=== PATIENT | male | born 2000 | race Caucasian/White ===

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

== ENCOUNTER 2022-01-16 08:12 | Outpatient (CLI) | payer BC, MEDICAID ==
[~2022-01-16 08:12] MED LIST changes: +FAMO20TA9 PO; -GABA-530 PO; -[UNRECOGNIZED DRUG - CODE] PO
== END 2022-01-16 23:59 | disposition home or self-care (01) ==
LOC: RAD 08:12
PROVIDERS: ATTEND Family Medicine
DX: M25.751 Osteophyte, right hip (principal)
CPT/HCPCS: 73502

== ENCOUNTER 2022-11-18 12:26 | Outpatient (CLI) | payer BC, MEDICAID ==
[2022-11-18 13:10] LABS: CLARITY,URINE CLOUDY (Clear); COLOR,URINE YELLOW (Yellow); GLUCOSE, URINE NEGATIVE (Neg); KETONES,URINE NEGATIVE (Neg); LEUKOCYTE ESTERASE ,URINE NEGATIVE (Neg); NITRITES, URINE NEGATIVE (Neg); OCCULT BLOOD,URINE NEGATIVE (Neg); PROTEIN,URINE NEGATIVE (Neg); UROBILINOGEN,URINE 0.2 E.U/dL (0.2-1.0)
[2022-11-18 13:12] LABS: BASOPHILS # (AUTO) 0.1 X10'3 (0-0.2); BASOPHILS % (AUTO) 0.8 % (0-1); EOSINOPHILS # (AUTO) 0.1 X10'3 (0-0.9); HEMATOCRIT 46.6 % (42.0-52.0); HEMOGLOBIN 15.5 g/dl (14.0-17.9); LYMPHOCYTES # (AUTO) 1.6 X10'3 (1.1-4.8); LYMPHOCYTES % (AUTO) 22.6 % (21-51); MEAN CORPUSCULAR HEMOGLOBIN 29.7 PG (27.0-31.0); MEAN CORPUSCULAR HGB CONC 33.3 g/dL (33.0-36.5); MEAN CORPUSCULAR VOLUME 89.1 FL (78-98); MONOCYTES # (AUTO) 0.9 X10'3 (0-0.9); MONOCYTES % (AUTO) 12.3 % (2-12); NEUTROPHILS # (AUTO) 4.6 X10'3 (1.8-7.7); NEUTROPHILS % (AUTO) 63.3 % (42-75); PLATELET COUNT 172 X10'3 (140-440); RED BLOOD COUNT 5.23 X10'6 (4.70-6.10); RED CELL DISTRIBUTION WIDTH 13.1 % (11.5-14.5); WHITE BLOOD COUNT 7.3 X10'3 (4.5-11.0)
[2022-11-18 13:22] LABS: UA COLLECTION TYPE CLN CATCH MIDSTREAM
[2022-11-18 13:24] LABS: BACTERIA,URINE NONE SEEN /HPF (Neg); RBC,URINE NONE SEEN /HPF (0-2); WBC,URINE 0-4 /HPF (0-4)
[2022-11-18 13:25] LABS: AMORPHOUS PHOSPHATES 4+; SQUAMOUS EPITHELIAL CELL,UR FEW /LPF (FEW)
[2022-11-18 13:30] LABS: ALANINE AMINOTRANSFERASE 27 U/L (12-78); ALBUMIN 4.3 G/DL (3.4-5.0); ALBUMIN/GLOBULIN RATIO 1.3 (1.1-1.5); ALKALINE PHOSPHATASE 68 IU/L (46-116); ANION GAP 10 (8-16); ASPARTATE AMINO TRANSFERASE 19 U/L (10-37); BILIRUBIN,TOTAL 0.4 MG/DL (0.1-1.0); BLOOD UREA NITROGEN 12 MG/DL (7-18); BUN/CREATININE RATIO 16.9 (10.0-20.0); CHLORIDE 103 MMOL/L (99-107); CHOL/HDL RATIO 3.6 (0.00-4.99); CHOLESTEROL 123 MG/DL (0-200); CREATININE 0.71 MG/DL (0.60-1.10); GLUCOSE 99 MG/DL (70-104); HDL CHOLESTEROL 34 MG/DL (35-60); LDL CHOLESTEROL 72 MG/DL (50-100); POTASSIUM 3.6 MMOL/L (3.5-5.1); SODIUM 141 MMOL/L (135-145); TOTAL CARBON DIOXIDE 28.3 MMOL/L (24-32); TOTAL PROTEIN 7.5 G/DL (6.4-8.2); TRIGLYCERIDES 144 MG/DL (20-135); eGFR > 90 ML/MIN
== END 2022-11-18 23:59 | disposition home or self-care (01) ==
LOC: LAB 12:26
PROVIDERS: ATTEND Family Medicine
DX: S06.9X9D Unspecified intracranial injury with loss of consciousness of unspecified duration, subsequent encounter (principal); Z00.00 Encounter for general adult medical examination without abnormal findings; X58.XXXD Exposure to other specified factors, subsequent encounter
CPT/HCPCS: 36415; 80053; 80061; 81001; 84439; 84443; 85025

== ENCOUNTER 2023-12-07 09:02 | Outpatient (CLI) | payer BC, MEDICAID ==
[2023-12-07 09:28] LABS: BASOPHILS % (AUTO) 0.4 % (0-1); EOSINOPHILS # (AUTO) 0.1 X10'3 (0-0.9); EOSINOPHILS % (AUTO) 0.6 % (0-6); HEMOGLOBIN 15.9 g/dl (14.0-17.9); LYMPHOCYTES # (AUTO) 1.4 X10'3 (1.1-4.8); MEAN CORPUSCULAR HEMOGLOBIN 29.8 PG (27.0-31.0); MEAN CORPUSCULAR HGB CONC 33.2 g/dL (33.0-36.5); MEAN CORPUSCULAR VOLUME 89.9 FL (78-98); MEAN PLATELET VOLUME 8.7 FL (7.4-10.4); MONOCYTES # (AUTO) 0.9 X10'3 (0-0.9); MONOCYTES % (AUTO) 10.8 % (2-12); NEUTROPHILS # (AUTO) 6.3 X10'3 (1.8-7.7); NEUTROPHILS % (AUTO) 72.2 % (42-75); PLATELET COUNT 197 X10'3 (140-440); RED BLOOD COUNT 5.34 X10'6 (4.70-6.10); RED CELL DISTRIBUTION WIDTH 13.3 % (11.5-14.5); WHITE BLOOD COUNT 8.7 X10'3 (4.5-11.0)
[2023-12-07 09:58] LABS: ALANINE AMINOTRANSFERASE 26 U/L (12-78); ALBUMIN 4.2 G/DL (3.4-5.0); ALBUMIN/GLOBULIN RATIO 1.1 (1.1-1.5); ALKALINE PHOSPHATASE 64 IU/L (46-116); ANION GAP 7 (8-16); ASPARTATE AMINO TRANSFERASE 15 U/L (10-37); BILIRUBIN,TOTAL 0.6 MG/DL (0.1-1.0); BLOOD UREA NITROGEN 9 MG/DL (7-18); CHLORIDE 104 MMOL/L (99-107); CHOL/HDL RATIO 3.4 (0.00-4.99); CHOLESTEROL 131 MG/DL (0-200); CREATININE 0.82 MG/DL (0.60-1.10); GLUCOSE 108 MG/DL (70-104); HDL CHOLESTEROL 39 MG/DL (35-60); LDL CHOLESTEROL 78 MG/DL (50-100); POTASSIUM 4.2 MMOL/L (3.5-5.1); SODIUM 139 MMOL/L (135-145); THYROID STIMULATING HORMONE 1.06 ulU/ml (0.34-4.50); TOTAL PROTEIN 7.9 G/DL (6.4-8.2); TRIGLYCERIDES 71 MG/DL (20-135); eGFR > 90 ML/MIN
== END 2023-12-07 23:59 | disposition home or self-care (01) ==
LOC: LAB 09:02
PROVIDERS: ATTEND Family Medicine
DX: S06.9X9D Unspecified intracranial injury with loss of consciousness of unspecified duration, subsequent encounter (principal); Z00.00 Encounter for general adult medical examination without abnormal findings; X58.XXXD Exposure to other specified factors, subsequent encounter
CPT/HCPCS: 36415; 80053; 80061; 84436; 84443; 85025

== ENCOUNTER 2024-07-31 13:23 | Emergency (ER) | payer MEDICAID ==
[~2024-07-31] VITALS: Ht 175.3 cm; Wt 74.8 kg
[2024-07-31] MEDS ORDERED: iohexol 300mg/ml 100ml inj. ONE (13:32)
[2024-07-31 14:15] VITALS: PULSE 96; TEMP 96.2
[2024-07-31 14:28] VITALS: BP 173/112; RESP 30; O2SAT 95
== END 2024-07-31 14:30 | disposition short-term general hospital (02) ==
LOC: ER 13:24
DX: S06.0XAA Concussion with loss of consciousness status unknown, initial encounter (principal); R41.82 Altered mental status, unspecified; F41.9 Anxiety disorder, unspecified; Z79.899 Other long term (current) drug therapy; X58.XXXA Exposure to other specified factors, initial encounter; Y93.89 Activity, other specified; Y92.89 Other specified places as the place of occurrence of the external cause; Y99.8 Other external cause status
CPT/HCPCS: 70450; 70486; 72125; 93005; 99291; Q9967

== ENCOUNTER 2024-11-13 13:44 | Outpatient (CLI) | payer BC, MEDICAID ==
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
== END 2024-11-13 23:59 | disposition home or self-care (01) ==
LOC: RAD 13:44
PROVIDERS: ATTEND Family Medicine
DX: M53.3 Sacrococcygeal disorders, not elsewhere classified (principal)
CPT/HCPCS: 72220

== ENCOUNTER 2024-12-21 10:05 | Outpatient (CLI) | payer BC, MEDICAID ==
[2024-12-21 10:49] LABS: BASOPHILS % (AUTO) 0.5 % (0-1); EOSINOPHILS % (AUTO) 0.6 % (0-6); HEMATOCRIT 42.2 % (42.0-52.0); LYMPHOCYTES # (AUTO) 1.2 X10'3 (1.1-4.8); MEAN CORPUSCULAR HEMOGLOBIN 29.5 PG (27.0-31.0); MEAN CORPUSCULAR HGB CONC 33.2 g/dL (33.0-36.5); MEAN PLATELET VOLUME 9.6 FL (7.4-10.4); MONOCYTES % (AUTO) 12.3 % (2-12); NEUTROPHILS # (AUTO) 5.7 X10'3 (1.8-7.7); NEUTROPHILS % (AUTO) 71.6 % (42-75); PLATELET COUNT 182 X10'3 (140-440); RED BLOOD COUNT 4.75 X10'6 (4.70-6.10); RED CELL DISTRIBUTION WIDTH 13.4 % (11.5-14.5); WHITE BLOOD COUNT 7.9 X10'3 (4.5-11.0)
[2024-12-21 11:15] LABS: ALANINE AMINOTRANSFERASE 139 U/L (12-78); ALBUMIN 3.8 G/DL (3.4-5.0); ALBUMIN/GLOBULIN RATIO 1.2 (1.1-1.5); ALKALINE PHOSPHATASE 63 IU/L (46-116); ANION GAP 8 (8-16); ASPARTATE AMINO TRANSFERASE 36 U/L (10-37); BILIRUBIN,TOTAL 0.3 MG/DL (0.1-1.0); BLOOD UREA NITROGEN 13 MG/DL (7-18); BUN/CREATININE RATIO 22.8 (10.0-20.0); CALCIUM 8.9 MG/DL (8.5-10.1); CHLORIDE 107 MMOL/L (99-107); CHOL/HDL RATIO 3.8 (0.00-4.99); CHOLESTEROL 153 MG/DL (0-200); CREATININE 0.57 MG/DL (0.60-1.10); GLUCOSE 103 MG/DL (70-104); HDL CHOLESTEROL 40 MG/DL (35-60); LDL CHOLESTEROL 93 MG/DL (50-100); POTASSIUM 3.9 MMOL/L (3.5-5.1); SODIUM 143 MMOL/L (135-145); THYROID STIMULATING HORMONE 0.88 ulU/ml (0.34-4.50); TOTAL CARBON DIOXIDE 28.2 MMOL/L (24-32); TOTAL PROTEIN 7.1 G/DL (6.4-8.2); TRIGLYCERIDES 64 MG/DL (20-135); VALPROATE 7 UG/ML (50-100); eGFR > 90 ML/MIN
== END 2024-12-21 23:59 | disposition home or self-care (01) ==
LOC: RAD 10:05
PROVIDERS: ATTEND Family Medicine
DX: Z00.01 Encounter for general adult medical examination with abnormal findings (principal)
CPT/HCPCS: 36415; 80053; 80061; 80164; 84443; 85025

== ENCOUNTER 2024-12-26 07:59 | Outpatient (CLI) | payer BC, MEDICAID ==
[2024-12-26 08:53] LABS: ALBUMIN 4.3 G/DL (3.4-5.0); ANION GAP 12 (8-16); BLOOD UREA NITROGEN 19 MG/DL (7-18); BUN/CREATININE RATIO 31.7 (10.0-20.0); CALCIUM 9.1 MG/DL (8.5-10.1); CHLORIDE 105 MMOL/L (99-107); GLUCOSE 99 MG/DL (70-104); PHOSPHORUS 3.4 MG/DL (2.3-4.5); POTASSIUM 4.4 MMOL/L (3.5-5.1); SODIUM 142 MMOL/L (135-145); TOTAL CARBON DIOXIDE 25.5 MMOL/L (24-32); eGFR > 90 ML/MIN
[2024-12-26 08:59] LABS: VALPROATE 63 UG/ML (50-100)
[2024-12-27 08:13] LABS: HBSAG SCREEN Negative (Negative); HEP A AB, IGM Negative (Negative); HEP B CORE AB, IGM Negative (Negative); HEPATITIS C VIRUS ANTIBODY Non Reactive (Non Reactive)
== END 2024-12-26 23:59 | disposition home or self-care (01) ==
LOC: RAD 07:59
PROVIDERS: ATTEND Family Medicine
DX: R94.5 Abnormal results of liver function studies (principal); G40.909 Epilepsy, unspecified, not intractable, without status epilepticus
CPT/HCPCS: 36415; 80069; 80074; 80164

== ENCOUNTER 2025-03-14 10:49 | Outpatient (CLI) | payer BC, MEDICAID ==
[2025-03-14 11:52] LABS: VALPROATE 60 UG/ML (50-100)
== END 2025-03-14 23:59 | disposition home or self-care (01) ==
LOC: LAB 10:49
PROVIDERS: ATTEND Family Medicine
DX: R94.5 Abnormal results of liver function studies (principal); G40.909 Epilepsy, unspecified, not intractable, without status epilepticus
CPT/HCPCS: 36415; 80076; 80164

== ENCOUNTER 2025-04-28 05:35 | Inpatient (IN) | payer BC, MEDICAID ==
[~2025-04-28] VITALS: Ht 170.2 cm; Wt 68.2 kg
[2025-04-28] VITALS (18 sets, daily range): BP systolic 139–157; BP diastolic 84–104; PULSE 83–106; RESP 13–41; TEMP 98.1–101.2; O2SAT 91–99
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
[2025-04-28] MEDS: normal saline 1000ML IV soln IVB ONE (06:17)
[2025-04-28] MEDS: morphine 4 MG/ML inj SYRINge IV ONE ×2 (06:17→10:48)
[2025-04-28] MEDS: ondansetron/PF 4mg/2ml inj IV ONE (06:17)
[2025-04-28 07:22] LABS: MEAN PLATELET VOLUME 9.1 FL (7.4-10.4); RED CELL DISTRIBUTION WIDTH 14.1 % (11.5-14.5)
[2025-04-28 07:30] LABS: CREATININE 0.67 MG/DL (0.60-1.10); TOTAL CARBON DIOXIDE 30.9 MMOL/L (24-32); eCRCL 160 ML/MIN; eGFR > 90 ML/MIN
--- NOTE | 2025-04-28 08:27 | RADIOLOGY REPORT ---
Exam: CT CT ABDOMEN PELVIS W/ IV CONTRAST History: RLQ pain COMPARISON: None Technique: Multidetector spiral CT of the abdomen and pelvis was performed from lung bases to pubic symphysis. Intravenous contrast was administered during this examination. Portal venous imaging was obtained. Axial, coronal and sagittal multiplanar reformats were performed by the technologist on a separate workstation. Radiation Dose : 1. Abdomen/Pelvis: CTDIvol 14 mGy, DLP 815 mGy*cm. Findings: Lung Bases: No acute or significant lung base finding. Normal heart size. No pleural or pericardial effusion. Liver: Hepatomegaly, 17.7 cm craniocaudal. No focal lesions. Normal hepatic vascular enhancement. Gallbladder and Biliary Tree: Unremarkable Spleen: Unremarkable Pancreas: The pancreas is normal in appearance without focal lesions or abnormal enhancement. Adrenal Glands: Unremarkable Kidneys: No hydronephrosis. Bladder: Diffuse thickening of the urinary bladder. Bowel: Mildly distended stomach. Mild diffuse fluid-filled distention of small- bowel loops with mild small bowel wall thickening. Moderate volume colonic stool. The appendix is not visualized; however, no secondary findings of acute appendicitis identified. Ascites: Absent Lymphadenopathy: No mesenteric, retroperitoneal or periportal lymphadenopathy. 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 Vasculature: The visualized abdominal aorta is normal in size and caliber. Abdominal and pelvic vessels demonstrate normal enhancement. Pelvic Organs: 5.2 cm linear foreign body is present in the anterior pelvis of uncertain etiology. Musculoskeletal: Right hip surgical hardware. No aggressive focal bony lesions, acute fractures or dislocation. IMPRESSION: Mild diffuse fluid-filled distention of small-bowel loops with mild small bowel wall thickening. Findings may represent enteritis. Moderate volume colonic stool. Diffuse thickening of the urinary bladder. Correlate for cystitis. 5.2 cm linear foreign body is present in the anterior pelvis of uncertain etiology. Radiation optimization: All CT scans at this facility use at least one of these dose optimization techniques: automated exposure control mA and/or kV adjustment per patient size (includes targeted exams where dose is matched to clinical indication) or iterative reconstruction.
[2025-04-28 08:45] LABS: LEUKOCYTE ESTERASE ,URINE NEGATIVE (Neg); NITRITES, URINE NEGATIVE (Neg); OCCULT BLOOD,URINE NEGATIVE (Neg)
[2025-04-28 08:51] LABS: UA COLLECTION TYPE URINAL
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
[2025-04-28] MEDS ORDERED: iohexol 300mg/ml 100ml inj. ONE (09:44)
[2025-04-28] MEDS ORDERED: magnesium hydroxide 30ml (MOM) UD suspension PO PRN (10:30)
[2025-04-28] MEDS ORDERED: mag hydrox/Alum hydrox/simeth 30ml oral suspension PO PRN (10:30)
[2025-04-28] MEDS ORDERED: magnesium sulf-water 2g/50mL 50 ML IV PRN (10:30)
[2025-04-28] MEDS ORDERED: potassium Cl 20 mEq SR tablet PO PRN ×2 (10:30)
[2025-04-28] MEDS ORDERED: mineral oil 133ml enema RC PRN (10:30)
[2025-04-28] MEDS ORDERED: magnesium sulf-water 4G/100mL 100 ML IV PRN (10:30)
[2025-04-28] MEDS ORDERED: potassium Cl 40MEQ/1/2NS 520ml 520 ML IV PRN (10:30)
[2025-04-28] MEDS: bisacodyl 10mg suppository rectal RC ONE (10:47)
[2025-04-28] MEDS: piperacillin/tazo 3.375gm/50ml 50 ML IV ONE (10:47)
[2025-04-28] MEDS: bisacodyl 10mg suppository rectal RC PRN (11:05)
[2025-04-28] MEDS: normal saline 1000ml 1,000 ML IV SCH (12:20)
[2025-04-28] MEDS: divalproex 250mg tablet, delayed-release PO ONE ×2 (13:59)
[2025-04-28] MEDS: lactulose 20gm/30ml cup PO SCH (15:14)
[2025-04-28] MEDS: piperacillin/tazo 4.5gm/100ml 100 ML IV SCH (15:41)
[2025-04-28] MEDS ORDERED: BUPIVAcaine 2.5mg/ml inj 50ml vial (contains preservative) ONE (17:05)
[2025-04-28] MEDS ORDERED: midazolam 1 mg/ML 2ml injection ONE (17:15)
[2025-04-28] MEDS ORDERED: fentaNYL /PF 50mcg/ml 5ml ampule ONE (17:15)
[2025-04-28] MEDS ORDERED: propofol inj 20 ML IV ONE (17:17)
[2025-04-28] MEDS ORDERED: rocuronium 10mg/ml inj IV ONE (17:17)
[2025-04-28] MEDS: BUPIVAcaine/PF 2.5 mg/ml (0.25%) 30ml vial IJ ONE (17:32)
[2025-04-28] MEDS ORDERED: diatr meglu/diatrizoate 30ml oral sol.-(3 dose) bottle PO SCH (18:00)
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
[2025-04-28] MEDS ORDERED: acetaminophen 1,000mg/100ml IV 100 ML IV ONE (18:42)
[2025-04-28] MEDS ORDERED: metoprolol tartrate 1mg/ml inj IV ONE (18:49)
[2025-04-28] MEDS ORDERED: glycopyrrolate 0.2mg/ml inj ONE (18:49)
--- NOTE | 2025-04-28 19:12 | OPERATIVE REPORT ---
Operative Report Providers to CC CC: ROBERT MORALES MD ~ Date of Procedure: Apr 28, 2025 Pre-Operative Diagnosis: Peritonitis, abdominal foreign body Post-Operative Diagnosis Small-bowel perforation secondary to foreign body perforation with localized peritonitis Wound class III Procedure Performed Diagnostic laparoscopy Exploratory laparotomy Removal of abdominal foreign body Small-bowel resection Primary small bowel anastomosis (isoperistaltic enteroenterostomy) Appendectomy Surgeon: Robert Morales MD FACS Gambling Dealer None Anesthesiologist: Eladio Wright Type of Anesthesia: General Findings: Inflammatory process involving the small bowel not amenable to laparoscopic approach Perforated distal small bowel with metallic punch tool Isoperistaltic enteroenterostomy about 10 cm proximal to the ileocecal valve Wound class III Complications None Prosthetics\Implants used: None Estimated Blood Loss: 25 cc Specimen Removed: Segment of perforated distal small bowel Appendix Description of Procedure: Patient was brought to the operating room and identified by the nursing staff and the attending physician. Patient was placed supine and general anesthesia was induced. Abdomen was prepped and draped in the standard sterile fashion. Veress needle technique was used at kauffman's point, however, I was having difficulty adequately insufflated in the abdomen. Decision to change to Piña technique was made and a supraumbilical midline incision was made following administration of local anesthetic. Incision was large enough to accommodate a 12 mm Piña port. Fascial incision was made and the Piña port was placed. Abdomen was insufflated without incident. Laparoscope was inserted in the abdomen was surveyed laparoscopically. There was a large inflammatory process in the lower abdomen/proximal pelvis. This was in the general location of the presumed foreign body. Given the amount of inflammatory changes and adhesions between small bowel and the anterior abdominal, the decision to not proceed laparoscopically was made. Laparoscope was removed and the midline incision was lengthened superiorly and inferiorly. Abdomen was entered. LONG TERM shunt was identified and set aside taking care to protect it throughout the case. Small bowel mobilized through the midline incision. Proximally all the bowel appeared normally, however distally, there was a matted mass of small intestine. This was slowly mobilized and the adhesions were all inflammatory in nature. While mobilizing these, I encountered a metallic object that had perforated the small intestine. About half of a metallic punch tool (the sharp end) had perforated a segment of distal small bowel and there was a significant circumferential inflammatory reaction. This segment of small bowel was mobilized out of the midline incision into the operative field. There was no gross spillage of enteral contents. The punch tool was removed and set aside. A small-bowel resection was performed using ELEAZAR 75 linear cutting stapler. Perforation was about 20 cm proximal to the ileocecal valve. An isoperistaltic enteroenterostomy was created about 10 cm proximal to the ileocecal valve. Common channel was sutured closed with a running [place] type suture using absorbable V lock suture. Suture line was reinforced with a running Lembert suture using the same suture material. Mesenteric defect was closed with absorbable suture. Bowel was reduced back into the abdomen which was then irr igated with antiseptic solution. LONG TERM shunt was laid back in the abdomen. Midline fascia was closed with a running, 0, PDS suture. Wound was irrigated with antiseptic solution and the skin was closed with skin pati. Sterile dressing was applied. Patient was awakened and taken to the postanesthesia care unit in stable condition. Counts repoted as correct: Yes ROBERT MORALES MD Apr 28, 2025 19:12
[2025-04-28] MEDS ORDERED: PCA WASTE DOCUMENTATION 1 MG ML MC SCH (19:15)
[2025-04-28] MEDS ORDERED: LIDOcaine 2% jelly 6ml syringe ***for topical use only ONE (19:20)
[2025-04-28] MEDS ORDERED: docusate sod 100mg capsule PO SCH (20:00)
[2025-04-28] MEDS: K and/or MAG REPLACEMENT MC SCH (20:00)
[2025-04-28] MEDS ORDERED: DIVA250T2 PO (21:03)
[2025-04-28] MEDS: heparin, porcine 5000 units/ml vial SQ SCH (22:01)
[2025-04-28] MEDS: NORMAL SALINE IV SCH (22:02)
[2025-04-28] MEDS: VALPROATE SOD IV SCH (22:02)
[2025-04-28] MEDS: HYDROmorphone inj. 0.5 MG/0.5 ML DISP.SYRIN IV PRN (22:10)
[2025-04-28] MEDS: ondansetron/PF 4mg/2ml inj IV PRN (22:15)
[2025-04-29] VITALS: BP 145/94; PULSE 93; TEMP 98.1; O2SAT 94
[2025-04-29 06:23] LABS: MEAN PLATELET VOLUME 9.5 FL (7.4-10.4); RED CELL DISTRIBUTION WIDTH 14.3 % (11.5-14.5)
[2025-04-29 06:35] VITALS: BP 150/92; PULSE 98; RESP 28; TEMP 98.1; O2SAT 95
[2025-04-29 06:42] LABS: CREATININE 0.51 MG/DL (0.60-1.10); TOTAL CARBON DIOXIDE 27.0 MMOL/L (24-32); eCRCL 211 ML/MIN; eGFR > 90 ML/MIN
[2025-04-29 08:00] VITALS: RESP 16; O2SAT 95
[2025-04-29 10:15] VITALS: BP 145/95; PULSE 104; RESP 20; TEMP 98.8; O2SAT 95
--- NOTE | 2025-04-29 16:59 | PROGRESS NOTE ---
Progress Note Dictate Providers to CC ~ Progress Note: Subsequent surgical care on a 24-year-old gentleman who is postoperative day 1 status post laparoscopic diagnostic with exploratory laparotomy and small-bowel resection and removal of foreign body that perforated the distal small bowel Patient does not like his nasogastric tube or Garcia catheter I explained why these were necessary Continue ice chips only with plans for another 24-48 hours of nasogastric tube decompression until return of bowel function Garcia catheter may be discontinued if bothersome to the patient, however, I would prefer he wait until tomorrow morning Antibiotic Ordered?: Yes Objective Vitals Vital Signs Date Time Temp Pulse Resp B/P (MAP) Pulse Ox O2 Delivery O2 Flow Rate FiO2 04/29/25 13:41 18 04/29/25 10:15 98.8 104 145/95 (112) 95 Room Air 04/28/25 19:50 2.0 Lab Results: 04/29/25 0530 04/29/25 0530 DODIE MORALES MD Apr 29, 2025 16:59
[2025-04-29 19:00] VITALS: BP 143/91; PULSE 102; RESP 16; RESP 17; TEMP 97.6; O2SAT 95
--- NOTE | 2025-04-29 19:51 | PROGRESS NOTE ---
Daily Progress Note Providers to CC ~ Antibiotic Timeout Antibiotic Ordered?: Yes Subjective The patient is doing fine postop however he is rather resistant to the NG tube however Dr. Gama convinced the patient to continue NG tube suctioning the patient remains on ice chips Objective Vital Signs Date Time Temp Pulse Resp B/P (MAP) Pulse Ox O2 Delivery O2 Flow Rate FiO2 04/29/25 17:45 16 04/29/25 10:15 98.8 104 145/95 (112) 95 Room Air 04/28/25 19:50 2.0 Result Diagram: 04/29/2530 04/29/25 05 Gen. No acute distress alert HEENT NG tube is present Lungs clear to ascultation bilaterally, no wheezes rales or rhonchi appreciated Heart normal sinus rhythm no murmurs rubs or clicks noted Abdomen soft [id number] generalized tenderness bowel sounds are absent Lower extremities no clubbing cyanosis, nor edema appreciated bilaterally Problem\Assessment\Plan Problems/Diagnosis: (1) Abdominal pain # significant abdominal pain/ surgical abdomen # retained abdominal foreign body Robert Gama MD general surgeon taking the patient to the OR and the patient currently is in surgery 04/29 status post exploratory laparotomy with the removal of a punch foreign body and small-bowel resection and primary small bowel anastomosis Per Dr. Gama the patient will continue ice chips for another 12:48 p.m. of NG tube decompression. # traumatic brain injury # hygroma RAVELER shunt is present # history of tracheostomy and PEG tube placement Both have subsequently been removed # multiple bone fractures with orthopedic surgeries # leukocytosis # possible intra-abdominal infection IV Zosyn Date of Service: Apr 29, 2025 Billing Provider: VALENTIN VICTOR DO Common Visit Codes: [id number] INP/OBS CARE(HIGH) Problem Qualifiers (1) Abdominal pain: Qualified Codes: R10.84 - Generalized abdominal pain VALENTIN VICTOR DO Apr 29, 2025 19:51
[2025-04-29 22:30] VITALS: BP 143/98; PULSE 90; RESP 22; TEMP 98; O2SAT 95
[2025-04-30 05:47] LABS: MEAN PLATELET VOLUME 9.4 FL (7.4-10.4); RED CELL DISTRIBUTION WIDTH 14.0 % (11.5-14.5)
[2025-04-30 06:21] LABS: CREATININE 0.43 MG/DL (0.60-1.10); TOTAL CARBON DIOXIDE 26.9 MMOL/L (24-32); eCRCL 250 ML/MIN; eGFR > 90 ML/MIN
[2025-04-30 06:45] VITALS: BP 130/86; PULSE 93; RESP 22; TEMP 97.9; O2SAT 95
[2025-04-30 07:00] VITALS: RESP 16
--- NOTE | 2025-04-30 13:23 | ELECTROCARDIOGRAPH REPORT ---
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 Reyna Gutierrez Measurements Intervals Watkins Rate: 81 P: 42 MI: 130 QRS: 75 QRSD: 94 T: 34 QT: 374 QTc: 434 Interpretive Statements Normal sinus rhythm Nonspecific T wave abnormality Electronically Signed On 05-01-2025 6:46:[address] Reyna Gutierrez Please click the below link to view image of tracing.
[2025-04-30 18:00] VITALS: BP 130/72; PULSE 84; RESP 15; TEMP 98.4; O2SAT 97
[2025-04-30 19:00] VITALS: RESP 20; O2SAT 95
--- NOTE | 2025-04-30 19:09 | PROGRESS NOTE ---
Daily Progress Note Providers to CC ~ Antibiotic Timeout Antibiotic Ordered?: Yes Subjective I appreciated some faint bowel sounds today and his abdomen was less tender, the patient complained of chest pain to nursing staff and an EKG was obtained and was negative for any acute changes and likely secondary to irritation from NG tube. Objective Vital Signs Date Time Temp Pulse Resp B/P (MAP) Pulse Ox O2 Delivery O2 Flow Rate FiO2 04/30/25 18:58 18 04/30/25 07:00 Room Air 04/30/25 06:45 97.9 93 130/86 (101) 95 04/28/25 19:50 2.0 Result Diagram: 04/30/2542104/30/25421 Gen. No acute distress alert HEENT NG tube is present Lungs clear to ascultation bilaterally, no wheezes rales or rhonchi appreciated Heart normal sinus rhythm no murmurs rubs or clicks noted Abdomen soft minimal generalized tenderness bowel sounds are faint and hypoactive Lower extremities no clubbing cyanosis, nor edema appreciated bilaterally Problem\Assessment\Plan Problems/Diagnosis: (1) Abdominal pain # significant abdominal pain/ surgical abdomen # retained abdominal foreign body Robert Gama MD general surgeon taking the patient to the OR and the patient currently is in surgery 04/29 status post exploratory laparotomy with the removal of a punch foreign body and small-bowel resection and primary small bowel anastomosis Per Dr. Gama the patient will continue ice chips and NG tube decompression for additional 24 hours # traumatic brain injury # hygroma PIPELINER shunt is present # history of tracheostomy and PEG tube placement Both have subsequently been removed # multiple bone fractures with orthopedic surgeries # leukocytosis # possible intra-abdominal infection IV Zosyn 04/30 Leukocytosis is improving Date of Service: Apr 30, 2025 Billing Provider: VALENTIN VICTOR DO Common Visit Codes: [id number] INP/OBS CARE(HIGH) Problem Qualifiers (1) Abdominal pain: Qualified Codes: R10.84 - Generalized abdominal pain VALENTIN VICTOR DO Apr 30, 2025 19:09
--- NOTE | 2025-04-30 19:41 | PROGRESS NOTE ---
Progress Note Dictate Providers to CC ~ Progress Note: Subsequent surgical care on a 24-year-old gentleman who is postoperative day 2, status post laparoscopic diagnostic with exploratory laparotomy and small-bowel resection and removal of foreign body that perforated the distal small bowel Minimal output from the nasogastric tube, but patient does not endorse any passage of flatus His main request is to have the Garcia catheter removed. Midline incision clean, dry, and intact Abdomen soft and nondistended Continue ice chips and nasogastric tube until passing flatus Garcia catheter can be removed Antibiotic Ordered?: Yes Objective Vitals Vital Signs Date Time Temp Pulse Resp B/P (MAP) Pulse Ox O2 Delivery O2 Flow Rate FiO2 04/30/25 18:58 18 04/30/25 07:00 Room Air 04/30/25 06:45 97.9 93 130/86 (101) 95 04/28/25 19:50 2.0 Lab Results: 04/30/25 0422 04/30/25 0422 DODIE MORALES MD Apr 30, 2025 19:41
[2025-04-30 22:00] VITALS: BP 127/72; PULSE 82; RESP 20; TEMP 98.1; O2SAT 95
[2025-05-01 05:06] LABS: MEAN PLATELET VOLUME 8.9 FL (7.4-10.4); RED CELL DISTRIBUTION WIDTH 14.0 % (11.5-14.5)
[2025-05-01 05:13] LABS: CREATININE 0.48 MG/DL (0.60-1.10); TOTAL CARBON DIOXIDE 26.4 MMOL/L (24-32); eCRCL 224 ML/MIN; eGFR > 90 ML/MIN
[2025-05-01 07:00] VITALS: RESP 20; O2SAT 95
[2025-05-01] MEDS ORDERED: acetaminophen 650mg rectal suppository RC PRN (07:20)
--- NOTE | 2025-05-01 09:55 | RADIOLOGY REPORT ---
Date: 05/01/2025 08:50 AM Examination: DI ABDOMEN,SINGLE VIEW(KUB) History: small bowel obstruction Comparison: CT CT ABDOMEN PELVIS W/ IV CONTRAST on DOS: 04/28/25 TECHNIQUE: Frontal views of the abdomen was obtained. FINDINGS: Bowel gas pattern is unremarkable. The lung bases are unremarkable. No acute osseous abnormality identified. Catheter projecting over the pelvis. IMPRESSION: Nonobstructive bowel gas pattern. large stool burden.
[2025-05-01 10:32] VITALS: BP 135/88; PULSE 80; RESP 16; TEMP 98.6; O2SAT 96
--- NOTE | 2025-05-01 11:16 | PROGRESS NOTE ---
Daily Progress Note Providers to CC ~ Antibiotic Timeout Antibiotic Ordered?: Yes Subjective No acute events overnight. Patient examined at bedside. No new complaints not in acute distress. Patient denies chest pain, sob, palpitations, abdominal pain, n/v/d. Vss, labs unremarkable. Peritonitis s/p removal of foreign body, small bowel resection and anastomosis. POD #2, continued on IV abx. Objective Vital Signs Date Time Temp Pulse Resp B/P (MAP) Pulse Ox O2 Delivery O2 Flow Rate FiO2 05/01/25 10:32 98.6 80 16 135/88 (104) 96 04/30/25 22:00 Room Air 04/28/25 19:50 2.0 Result Diagram: 05/01/2543405/01/25434 Physical Exam General: Generalized weakness, awake and alert, NAD HEENT: Normocephalic, PERRLA Neck: Supple, trachea midline, no JVD Chest: Clear to auscultation bilaterally Cardiovascular: RRR, S1&S2 GI: Soft and nontender Extremities: No cyanosis/clubbing/or edema FRAME TABLE OPERATOR HELPER: No focal deficits Musculoskeletal: No paraspinal muscle tenderness, no muscle spasm Skin: medial abdominal incision pati, no s/s infection Problem\Assessment\Plan Problems/Diagnosis: (1) Abdominal pain Assessment & Plan Peritonitis s/p ex laparotomy, removal of foreign body, small-bowel resection and anastomosis Retained abdominal foreign body 04/29 s/p exploratory laparotomy with the removal of a punch foreign body and small-bowel resection and primary small bowel anastomosis Per Dr. Gama the patient will continue ice chips and NG tube decompression for additional 24 hours Hx TBI Hygroma Hx multiple bone fractures with orthopedic surgeries Hx tracheostomy and PEG tube placement- both have subsequently been removed s/p COMPLAINT MANAGER shunt DVT/VTE Prophylaxis: heparin Code Status: Full Code Date of Service: May 01, 2025 Billing Provider: IZABEL TIERNEY Common Visit Codes: [id number] INP/OBS CARE(HIGH) Problem Qualifiers (1) Abdominal pain: Qualified Codes: R10.84 - Generalized abdominal pain IZABEL TIERNEY May 01, 2025 11:16
[2025-05-01] MEDS: oxyCODONE/APAP 5-325mg tablet PO PRN (17:54)
[2025-05-01 18:00] VITALS: BP 133/76; PULSE 80; RESP 19; TEMP 97.4; O2SAT 97
[2025-05-01 19:00] VITALS: RESP 19; O2SAT 97
[2025-05-01 22:00] VITALS: BP 121/57; PULSE 61; RESP 17; TEMP 98.1; O2SAT 97
--- NOTE | 2025-05-01 23:11 | PROGRESS NOTE ---
Progress Note Dictate Providers to CC ~ Progress Note: Subsequent surgical care on a 24-year-old gentleman who is postoperative day 3, status post laparoscopic diagnostic with exploratory laparotomy and small-bowel resection and removal of foreign body that perforated the distal small bowel Nasogastric tube apparently was accidentally removed last night by the patient He is passing flatus today Midline incision clean, dry, and intact Abdomen soft and nondistended Trial of clear liquid diet Continue antibiotics for another two days Antibiotic Ordered?: Yes Objective Vitals Vital Signs Date Time Temp Pulse Resp B/P (MAP) Pulse Ox O2 Delivery O2 Flow Rate FiO2 05/01/25 19:00 19 97 Room Air 05/01/25 18:00 97.4 80 133/76 (95) 04/28/25 19:50 2.0 Lab Results: 05/01/25 0435 05/01/25 0435 DODIE MORALES MD May 01, 2025 23:11
[2025-05-02] VITALS (7 sets, daily range): BP systolic 110–129; BP diastolic 54–72; PULSE 63–83; RESP 16–20; TEMP 97.5–97.8; O2SAT 94–98
[2025-05-02 05:56] LABS: MEAN PLATELET VOLUME 8.5 FL (7.4-10.4); RED CELL DISTRIBUTION WIDTH 14.2 % (11.5-14.5)
[2025-05-02 06:26] LABS: CREATININE 0.47 MG/DL (0.60-1.10); TOTAL CARBON DIOXIDE 26.3 MMOL/L (24-32); eCRCL 229 ML/MIN; eGFR > 90 ML/MIN
--- NOTE | 2025-05-02 10:40 | PROGRESS NOTE ---
Daily Progress Note Providers to CC ~ Antibiotic Timeout Antibiotic Ordered?: Yes Subjective No acute events overnight. Patient examined at bedside. No new complaints not in acute distress. Patient denies chest pain, sob, palpitations, abdominal pain, n/v/d. Vss, labs unremarkable. Peritonitis s/p removal of foreign body, small bowel resection and anastomosis. POD #3, continued on IV abx. Objective Vital Signs Date Time Temp Pulse Resp B/P (MAP) Pulse Ox O2 Delivery O2 Flow Rate FiO2 05/02/25 09:43 16 05/02/25 07:00 97 Room Air 05/02/25 06:49 97.8 63 111/63 (79) 04/28/25 19:50 2.0 Result Diagram: 05/02/2551105/02/25511 Physical Exam General: Generalized weakness, awake and alert, NAD HEENT: Normocephalic, PERRLA Neck: Supple, trachea midline, no JVD Chest: Clear to auscultation bilaterally Cardiovascular: RRR, S1&S2 GI: Soft and nontender Extremities: No cyanosis/clubbing/or edema FUEL QUALITY TECH: No focal deficits Musculoskeletal: No paraspinal muscle tenderness, no muscle spasm Skin: medial abdominal incision pati, no s/s infection Problem\Assessment\Plan Problems/Diagnosis: (1) Abdominal pain Assessment & Plan Peritonitis s/p ex laparotomy, removal of foreign body, small-bowel resection and anastomosis Retained abdominal foreign body 04/29 s/p exploratory laparotomy with the removal of a punch foreign body and small-bowel resection and primary small bowel anastomosis Per Dr. Gama the patient will continue ice chips and NG tube decompression for additional 24 hours 05/01-05/02: continue abx Hx TBI Hygroma Hx multiple bone fractures with orthopedic surgeries Hx tracheostomy and PEG tube placement- both have subsequently been removed s/p BUSINESS OPERATIONS CONSULTANT shunt DVT/VTE Prophylaxis: heparin Code Status: Full Code Date of Service: May 02, 2025 Billing Provider: IZABEL TIERNEY Common Visit Codes: [id number] INP/OBS CARE(HIGH) Problem Qualifiers (1) Abdominal pain: Qualified Codes: R10.84 - Generalized abdominal pain IZABEL TIERNEY May 02, 2025 10:40
--- NOTE | 2025-05-02 20:30 | PROGRESS NOTE ---
Progress Note Dictate Providers to CC ~ Progress Note: Subsequent surgical care on a 24-year-old gentleman who is postoperative day 4, status post laparoscopic diagnostic with exploratory laparotomy and small-bowel resection and removal of foreign body that perforated the distal small bowel Tolerating full liquid diet No acute surgical issues Midline incision clean, dry, and intact Abdomen soft and nondistended Regular diet as tolerated Antibiotic through tomorrow Likely able to discharge tomorrow Antibiotic Ordered?: Yes Objective Vitals Vital Signs Date Time Temp Pulse Resp B/P (MAP) Pulse Ox O2 Delivery O2 Flow Rate FiO2 05/02/25 20:00 16 05/02/25 10:00 97.8 63 126/72 (90) 94 Room Air 04/28/25 19:50 2.0 Lab Results: 05/02/25 0512 05/02/25 0512 DODIE MORALES MD May 02, 2025 20:30
[2025-05-03 04:22] LABS: MEAN PLATELET VOLUME 8.4 FL (7.4-10.4); RED CELL DISTRIBUTION WIDTH 14.1 % (11.5-14.5)
[2025-05-03 04:40] LABS: CREATININE 0.63 MG/DL (0.60-1.10); TOTAL CARBON DIOXIDE 28.6 MMOL/L (24-32); eCRCL 171 ML/MIN; eGFR > 90 ML/MIN
[2025-05-03 05:50] LABS: EOSINOPHILS % (MANUAL) 3.0 % (0-6); LYMPHOCYTES % (MANUAL) 23.0 % (21-51); METAMYLEOCYTES% (MANUAL) 5.0 % (0-0); MONOCYTES % (MANUAL) 16.0 % (2-12); NEUTROPHILS % (MANUAL) 53.0 % (42-75)
[2025-05-03 05:53] LABS: PLATELET ESTIMATE NORMAL
[2025-05-03 06:46] VITALS: BP 102/66; PULSE 67; RESP 14; TEMP 97.6; O2SAT 96
[2025-05-03] MEDS ORDERED: PER5325T PO (07:09)
[2025-05-03] MEDS: divalproex 250mg tablet, delayed-release PO SCH (08:23)
[2025-05-03 08:54] VITALS: RESP 14; O2SAT 96
[2025-05-03 10:00] VITALS: BP 133/79; PULSE 86; RESP 16; TEMP 98.5; O2SAT 97
--- NOTE | 2025-05-03 11:13 | CONSULTATION REPORT ---
History of Present Illness Providers to CC CC: DODIE MORALES MD ~ Reason for Admit\Admit Dx: Surgical abdomen with severe abdominal pain and foreign body Refering MD: DR. VILLELA History of Present Illness This is a surgical consultation being dictated in a delayed fashion as the original dictation is not to be found. Patient was seen and examined and the consultation performed on April 28, 2025 before proceeding to the operating room Patient is a 24-year-old gentleman with a history of traumatic brain injury and BOOSTER PUMP OILER shunt placement five years ago. He presented to the emergency room with a three day history of worsening abdominal pain. He was found to have severe abdominal pain and a CT scan was performed. This was a noncontrast CT scan that revealed a foreign body in the lower abdomen. I was called to review the CT scan as the patient had severe abdominal pain and questionable peritonitis. I reviewed the CT scan, and indeed, there was a metallic foreign body in the lower abdomen/proximal pelvis that looks almost like a small eyeglass screwdriver. Patient is evaluated on the surgical clay. His father is one of the nighttime surgical nurses. Patient is visibly in pain He is holding his abdomen He is mildly tachycardic Patient is communicative and reports severe lower abdominal pain. He points to his lower abdomen chcf between his umbilicus and symphysis pubis When questioned as to whether or not he accidentally swallowed a tool, he replies emphatically no. Allergies: Coded Allergies: No Known Allergies (Unverified , 04/23/20) Home Medications Home Medications Active Percocet 5/325 MG* (Oxycodone/Acetaminophen) 5 Mg/325 Mg Tablet 1 Tab PO Q6H PRN 5 Days Reported Depakote ER (Divalproex Sodium) 250 Mg Tab.er.24h 750 Mg PO BID Past Medical History Medical History Comment Traumatic brain injury Past Surgical History Surgical History Comment BOOSTER PUMP OILER shunt placement Past Family History Family History Comment Noncontributory Family History: Unobtainable family history due to adoption Past Social History Social History Comment Negative x3 He lives with his parents Physical Exam Last Vital Signs Recorded: RN Vital Signs have been reviewed: Yes, Temperature: 97.6, Source: Oral, Heart Rate: 67, Respiratory Rate: 14, BP: 102/66, Pulse Oximetry: 96, Weight: 68.200 General Appearance: alert, moderate distress EENT: PERRL/EOMI Neck: normal inspection Respiratory: lungs clear Cardiovascular: tachycardia Gastrointestinal Abdomen is firm, guarded with diffuse lower abdominal tenderness to palpation with localized tenderness to percussion in the lower mid abdomen. Surgical scars consistent with a history of BOOSTER PUMP OILER shunt placement No palpable masses or hernias Genitalia: normal, no hernias Rectal: deferred Back: normal inspection, no CVA tenderness Extremities: non-tender, no edema Neurologic: oriented x4 Skin: normal color Lymphatic: no adenopathy Results Diagram Lab Result Diagram: 05/03/25 0353 05/03/25 0353 Assessment/Plan Problems/Diagnosis: (1) Peritonitis (acute) generalized (2) Intra-abdominal foreign body Assessment & Plan: Concern for bowel perforation related to ingested foreign body I can find no other etiology for the above diagnosis I reviewed several imaging studies since he had his BOOSTER PUMP OILER shunt placed and this is not a component of the BOOSTER PUMP OILER shunt The risks, benefits, and alternatives to an exploratory laparotomy with possible bowel resection were discussed with the patient's mother/medical decision maker who agrees to proceed emergently to the operating room. DODIE MORALES MD May 03, 2025 11:13
--- NOTE | 2025-05-03 11:57 | DISCHARGE SUMMARY ---
Discharge Summary Providers to CC ~ Discharge Summary Admission Diagnosis: Peritonitis, abdominal foreign body Hospital Course DATE OF ADMISSION: 04/28/25 DATE OF DISCHARGE: 05/03/25 Discharge Diagnosis\\Comment: Peritonitis s/p ex laparotomy, removal of foreign body, small-bowel resection and anastomosis Retained abdominal foreign body Hx TBI Hygroma Hx multiple bone fractures with orthopedic surgeries Hx tracheostomy and PEG tube placement- both have subsequently been removed s/p CAP AND HAT PRODUCTION SUPERVISOR shunt Operations\\Procedures: Exploratory laparotomy with the removal of a punch foreign body and small-bowel resection and primary small bowel anastomosis Consultants: Surgeon Robert Ariza Complications: None Condition on DC: Stable New Medications: Oxycodone Hcl/Acetaminophen 5/325 MG* (Percocet 5/325 MG*) 5 Mg/325 Mg Tablet 1 TAB PO Q6H PRN for moderate or severe pain for 5 Days, #20 TAB Continued Medications: Divalproex Sodium (Depakote ER) 250 Mg Tab.er.24h 750 MG PO BID, TAB Discharge Summary: History of Present Illness From H&P: "This is a 24-year-old male who has fecal accidents in 2019 and had multiple procedures including a tracheostomy and PEG tube placement which both have subsequently been removed the patient also has a hygroma with a CAP AND HAT PRODUCTION SUPERVISOR shunt placed. 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 The patient presents to the ED with severe abdominal pain x2 days and cramping the patient is last bowel movement was yesterday the patient has had two episodes of nausea and vomiting last week as well as diarrhea a little over week ago. A CT scan of the abdomen and pelvis demonstrated a 5.2 cm linear foreign body in the anterior pelvis and some mildly diffuse fluid-filled distention of small-bowel loops that has mild small bowel wall thickening. Robert Gama MD general surgeon has been consulted and the patient is in surgery at the time of this dictation." Hospital Course Diagnostic findings were notable for CT abdomen/pelvis revealing a 5.2 cm linear foreign body is present in the anterior pelvis. Case was consulted with surgeon Dr. Gama and patient underwent exploratory laparotomy with the removal of a foreign body, small-bowel resection and primary small bowel anastomosis with findings notable for localized peritonitis secondary to foreign body. Patient was treated with empirical antibiotics supportive care. Patient did not experience further complications throughout the entire hospital stay and remained clinically and hemodynamically stable. Patient tolerated diet well and had a bowel movement. Patient was seen and examined on the day of discharge. On day of discharge, vss and labs unremarkable. Blood culture resulted negative. A ll labs, diagnostic workups, discharge plan discussed with patient in details during visit before discharge. All questions and concerns answered to the best of my professional knowledge. Patient is cleared for discharge from surgical standpoint by Dr. Deutsch. Patient is to be discharged with HH and to follow-up with PCP and Dr. Gama within 2 weeks. Physical Exam General: Generalized weakness, awake and alert, NAD HEENT: Normocephalic, PERRLA Neck: Supple, trachea midline, no JVD Chest: Clear to auscultation bilaterally Cardiovascular: RRR, S1&S2 GI: Soft and nontender Extremities: No cyanosis/clubbing/or edema ENVIRONMENTAL SAFETY SPECIALIST: No focal deficits Musculoskeletal: No paraspinal muscle tenderness, no muscle spasm Skin: Medial abdominal incision stapled, no s/s infection *Problems/Diagnosis: (1) Peritonitis (acute) generalized Status: Acute (2) Intra-abdominal foreign body Status: Acute Total Time Spent on D/C: > 30 Minutes Date of Service: May 03, 2025 Billing Provider: IZABEL TIERNEY Common Visit Codes: [id number]-FON/OBS DISCH DAY >30min IZABEL TIERNEY May 03, 2025 11:57
== END 2025-05-03 12:52 | disposition home health service (06) | DRG 326 ==
LOC: ER 05:36 → ED HOLD 10:35 → SUR 3N 14:18
PROVIDERS: ADMIT Family Medicine; ATTEND Family Medicine
PROC: 0DJ04ZZ Inspection of Upper Intestinal Tract, Percutaneous Endoscopic Approach (ICD-10-PCS; 2025-04-28)
PROC: 0DTJ0ZZ Resection of Appendix, Open Approach (ICD-10-PCS; 2025-04-28)
PROC: BW211ZZ Computerized Tomography (CT Scan) of Abdomen and Pelvis using Low Osmolar Contrast (ICD-10-PCS; 2025-04-28)
PROC: 0DB80ZZ Excision of Small Intestine, Open Approach (ICD-10-PCS; principal; 2025-04-28 17:07)
PROC: 0D9670Z Drainage of Stomach with Drainage Device, Via Natural or Artificial Opening (ICD-10-PCS; 2025-04-29)
DX: T18.3XXA Foreign body in small intestine, initial encounter (principal); K65.0 Generalized (acute) peritonitis; K56.7 Ileus, unspecified; D18.1 Lymphangioma, any site; F41.9 Anxiety disorder, unspecified; D72.829 Elevated white blood cell count, unspecified; W44.8XXA Other foreign body entering into or through a natural orifice, initial encounter; Y93.89 Activity, other specified; Y92.89 Other specified places as the place of occurrence of the external cause; Y99.8 Other external cause status; Z53.31 Laparoscopic surgical procedure converted to open procedure
CPT/HCPCS: 96365; 96375; 99285; Z7506; Z7508; 36415; 74018; 74177; 80053; 81003; 83605; 83690; 83735; 84145; 85007; 85025; 87040; 87081; 93005; 97116; 97161; 97530; A4215; A4618; A5200; C1758; G0378; J0131; J1171; J1644; J2250; J2270; J2405; J2543; J2704; J2710; J3010; J3490; J7030; J7120; Q9967